=== PATIENT | female | born 1995 | race Caucasian/White ===

== ENCOUNTER 2019-04-22 20:46 | Emergency (ER) | payer OTHER ==
--- NOTE | 2019-04-22 21:01 | ER Document Report ---
ED Medical Screen (RME) - General Chief Complaint: Eye Problem Stated Complaint: POSSIBLE COLD SORE NEAR LEFT EYE Time Seen by Provider: 04/22/19 20:57 Mode of Arrival: Ambulatory Information source: Patient Notes: 23-year-old female presented to ED for complaint of herpes type infection around the left eye. She states she was told if she ever got it into the eye or had any drainage from the eye she needs to come to the emergency room or get seen emergently emergently. She states this time it is been the rash around her eye for the last 3 days the drainage from the eye started 2 days ago. 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 He is alert oriented respirations regular nonlabored speaking in full sentences. To cycle 03/27/2019. She denies smoking or drugs she does drink twice a month. July Physical Exam - Vital signs Vitals: Temp Pulse Resp BP Pulse Ox 97.9 F 67 16 119/70 100 04/22/19 20:52 04/22/19 20:52 04/22/19 20:52 04/22/19 20:52 04/22/19 20:52 Course - Vital Signs Vital signs: Temp Pulse Resp BP Pulse Ox 97.9 F 67 16 119/70 100 04/22/19 20:52 04/22/19 20:52 04/22/19 20:52 04/22/19 20:52 04/22/19 20:52
[2019-04-22] MEDS ORDERED: TETRACAINE HCL 0.5% OPH SOLN 4 ML OS ONE (21:02)
[2019-04-22] MEDS ORDERED: TETRACAINE HCL 0.5% OPH SOLN 4 ML ONE (23:13)
--- NOTE | 2019-04-23 00:27 | ER Document Report ---
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 Patient states that it began in front of the left ear with some numbness tingling in the face. Rash spread to the left eye now with redness of the left eye with discomfort. No visual loss. Patient states that she had been told previously that if the rash went into the eye she would need to see someone emergently about it. ROS: See HPI - all other systems were reviewed and are otherwise negative Constitutional: no fever Eyes: + drainage, no blurred vision, positive redness ENT: no runny nose, no sore throat Cardiovascular: no chest pain Resp: no SOB, no cough GI: no vomiting, no diarrhea, no abdominal pain : no dysuria Integumentary: Positive rash Allergy: no hives Musculoskeletal: no extremity pain or swelling Neurological: Positive numbness/tingling, no weakness MEDICATIONS: I agree with the patient medications as charted by the RN. ALLERGIES: I agree with the allergies as charted by the RN. PAST MEDICAL HISTORY/PAST SURGICAL HISTORY: Reviewed and agree as charted by RN. SOCIAL HISTORY: Reviewed and agree as charted by RN. FAMILY HISTORY: No significant familial comorbid conditions directly related to patient complaint EXAM: Reviewed vital signs as charted by RN. CONSTITUTIONAL: Alert and oriented and responds appropriately to questions. Well-appearing; well-nourished HEAD: Normocephalic; atraumatic EYES: PERRL; Conjunctivae injected left eye, sclerae non-icteric. No visible foreign body under the upper or lower lids. There are several small areas of fluorescein uptake over the left iris and conjunctiva. No visible definitive ulcerations, no hyphema. Negative Bryan sign. Funduscopic exam does not reveal evidence of disc edema or hemorrhage. Anterior chamber is clear and not cloudy. ENT: normal nose; no rhinorrhea; moist mucous membranes; pharynx without lesions noted, no uvula edema or deviation, no tonsillar hypertrophy, phonation normal. There is a raised papular rash in the left preauricular region and up over the left temporal region and left forehead. Negative Manriquez sign NECK: Supple without meningismus; non-tender; no cervical lymphadenopathy, no masses CARD: RRR; no murmurs, no clicks, no rubs, no gallops; symmetric distal pulses RESP: Normal chest excursion without splinting or tachypnea; breath sounds clear and equal bilaterally; no wheezes, no rhonchi, no rales, pulse oximetry ABD/GI: Normal bowel sounds; non-distended; soft, non-tender, no rebound, no guarding; no palpable organomegaly or masses. BACK: The back appears normal and is non-tender to palpation, there is no CVA tenderness EXT: Normal ROM in all joints; non-tender to palpation; no cyanosis, no effusions, no edema SKIN: Normal color for age and race; warm; dry; good turgor NEURO: Moves all extremities equally; Motor and sensory function intact PSYCH: The patient's mood and manner are appropriate. Grooming and personal hygiene are appropriate. MDM: 23-year-old female with possible ophthalmic herpetic lesions. Do not have ophthalmology on-call. Patient is aware. I will try and speak with ophthalmology at [facility] for consultation. discussed with Dr. Lacy, Attending TRAVEL OUTSIDE OF THE [place] IN LAST 30 DAYS: No Past Medical History - General Information source: Patient - Social History Smoking Status: Never Smoker Frequency of alcohol use: Social Drug Abuse: None Family History: Reviewed & Not Pertinent Patient has suicidal ideation: No Patient has homicidal ideation: No Physical Exam - Vital signs Vitals: Temp Pulse Resp BP Pulse Ox 97.9 F 67 16 119/70 100 1520 20:52 1520 20:52 1520 20:52 1520 20:52 20 20:52 - HEENT Visual acuity- Right eye: 20/25 Visual acuity- Left eye: 20/40 Visual acuity- Both eyes: 20/20 Corrective lenses worn: No Course - Re-evaluation Re-evalutation: 04/23/19 00:[address] Stefany Ann, Ophthalmology, [facility]. Case was discussed. She recommends starting patient on Valtrex 1 g 3 times daily, erythromycin ointment twice daily. She will open her clinic up today at [address] [place] [address] Dr. nuno Condon to see the patient at 1 PM. I discussed this at length with the patient and her significant other regarding the need to make sure they attend the appointment. - Vital Signs Vital signs: Temp Pulse Resp BP Pulse Ox 97.9 F 67 16 119/70 100 04/22/19 20:52 04/22/19 20:52 04/22/19 20:52 04/22/19 20:52 04/22/19 20:52 Discharge - Discharge Clinical Impression: Herpes zoster ophthalmicus of left eye Condition: Stable Disposition: HOME, SELF-CARE Additional Instructions: Medications as prescribed. Follow-up with Dr. Stefany Ann at [address] [place] [address] Dr. nuno Condon at 1 PM today. Their group website is [email or web address]. Please make sure that you show up slightly early for your appointment as she is opening the clinic to evaluate you today. Prescriptions: Erythromycin Base [Erythromycin Oph 1 Gm Oint Ud] 1 applic OS TID 5 Days #1 tube Oxycodone HCl/Acetaminophen [Percocet 5-325 mg Tablet] 1 tab PO Q4H PRN #15 tablet PRN Reason: Valacyclovir HCl [Valtrex 500 Mg Tablet] 1,000 mg PO TID #21 tablet
[2019-04-23] MEDS ORDERED: OXYCODONE-ACETAMINOPHEN 5-325 MG TABLET PO ONE (00:54)
[2019-04-23] MEDS ORDERED: VALACYCLOVIR HCL 500 MG TABLET PO ONE (00:54)
[2019-04-23] MEDS ORDERED: ERYTHROMYCIN 0.5% OPH OINTMENT 3.5 GM TUBE OS ONE (00:54)
[2019-04-23 00:59] VITALS: BP 119/68
[2019-04-23] MEDS ORDERED: ERYTHROMYCIN 0.5% OPH OINT 1 GM UNIT DOSE ONE (01:03)
== END 2019-04-23 01:10 | disposition home or self-care (01) ==
LOC: ER 20:46
DX: B02.30 Zoster ocular disease, unspecified (principal); R20.0 Anesthesia of skin; R20.2 Paresthesia of skin
CPT/HCPCS: 99283; J3490